=== PATIENT | male | born 1990 | race Two or more races ===

== ENCOUNTER 2021-04-20 05:09 | Emergency (ER) | payer MEDICAID, OTHER ==
[~2021-04-20] VITALS: Ht 162.6 cm; Wt 108.9 kg
[2021-04-20] MEDS ORDERED: DexAMETHasone SOD PHOS 10MG/1ML VIAL INJ IM ONE (06:45)
[2021-04-20] MEDS ORDERED: IBUPROFEN 800 MG TAB PO ONE (06:45)
[2021-04-20] MEDS ORDERED: cefTRIAXone SOD 1,000 MG VL IM ONE (06:45)
[2021-04-20] MEDS ORDERED: CEPH500C PO (07:04)
[2021-04-20] MEDS ORDERED: IBUP800T27 PO (07:04)
[2021-04-20 07:41] VITALS: BP 130/65
== END 2021-04-20 07:42 | disposition home or self-care (01) ==
LOC: ER 05:09
DX: L03.114 Cellulitis of left upper limb (principal); F17.210 Nicotine dependence, cigarettes, uncomplicated
CPT/HCPCS: 96372; 99284; J0696; J1100